=== PATIENT | female | born 1970 | race Caucasian/White ===

== ENCOUNTER 2018-09-26 08:11 | Outpatient (CLI) | payer OTHER ==
[2018-09-26 09:04] LABS: CULTURE INDICATED? NO; MICROSCOPIC AUTO
[2018-09-26 09:15] LABS: ANION GAP 9 mmol/L (5-15); CALCIUM 8.7 mg/dL (8.5-10.1); CHLORIDE 109 mmol/L (98-107); CREATININE 0.64 mg/dL (0.55-1.02)
[2018-09-26 09:21] LABS: MEAN CORPUSCULAR VOLUME 67.4 fL (80-100); MEAN PLATELET VOLUME 8.2 fL (7.4-10.4); PLATELET COUNT 422 x10^3/uL (130-400); RED BLOOD COUNT 5.85 x10^6/uL (3.82-5.3); RED CELL DISTRIBUTION WIDTH 23.4 % (9.6-15.2)
[2018-09-26 09:41] LABS: BASOPHILS % (AUTO) 1 % (0-1); EOSINOPHILS # (AUTO) 0.43 x10^3/uL (0-0.4); EOSINOPHILS % (AUTO) 5 % (1-7); LYMPHOCYTES # (AUTO) 2.43 x10^3/uL (1-3.4); LYMPHOCYTES % (AUTO) 27 % (22-44); MD SCAN; MONOCYTES # (AUTO) 0.49 x10^3/uL (0.2-0.8); MONOCYTES % (AUTO) 5 % (2-9); NEUTROPHILS % (AUTO) 62 % (42-75)
[2018-09-26 09:42] LABS: MEAN CORPUSCULAR HGB CONC 29.7 g/dL (32.4-35.8)
[2018-09-26] MEDS ORDERED: CHOL5000 PO (09:55)
[2018-09-26] MEDS ORDERED: IRON1TAB2 PO (09:55)
[2018-09-26] MEDS ORDERED: NAPR-850 PO (09:55)
[2018-09-26] MEDS ORDERED: FEXO1TAB29 PO (09:55)
[2018-09-26] MEDS ORDERED: NORE5TAB PO (09:55)
== END 2018-09-26 23:59 | disposition home or self-care (01) ==
LOC: STAR 08:11
PROVIDERS: ATTEND Obstetrics & Gynecology
DX: Z01.818 Encounter for other preprocedural examination (principal); D64.9 Anemia, unspecified; D25.9 Leiomyoma of uterus, unspecified
CPT/HCPCS: 36415; 80048; 81001; 84702; 85025